=== PATIENT | male | born 1980 | race Asian ===

== ENCOUNTER 2017-06-29 16:13 | Outpatient (CLI) | payer OTHER ==
--- NOTE | 2017-06-29 16:21 | PN ---
Date/Time of Note Date/Time of Note DATE: 06/29/17 TIME: 16:15 Outpatient Progress Note Chief Complaint Diabetic ketoacidosis/diabetes/hypertension/hyperlipidemia/neuropathy/ gastroparesis HPI Diabetic ketoacidosis/patient was recently hospitalized with diabetict ketoacidosis, no nausea vomiting no abdominal discomfort, Diabetes/no polyps or polyuria hypoglycemia, blood sugar fairly controlled, Hypertension/no headache or dizziness, no impaired vision, Hyperlipidemia/no xanthoma, on medication, Neuropathy/patient has tingling numbness, patient on gabapentin, slightly better , Gastroparesis/patient has gastroparesis, no nausea vomiting or abdominal pain, Review of Systems Const: No Fever, no chills, no Wt. loss, no Fatigue, normal appetite, no diaphoresis slightly obese,. Eyes: No pain, no discharge, no redness, no visual change, no foreign body. ENT: No pain, no bleeding, no congestion, no sore throat, no dysphagia, no discharge or rhinitis. Lymph: No adenopathy, no tender nodes, no lymphedema. Resp: No SOB, no cough, no sputum, no wheezing, no chest pain. CV: No chest pain, no palpitaions, no ABARCA, no PND, no edema. GI: Normal appetite, no pain, no nausea, no vomiting, no diarrhea, no blood, no constipation. : No frequency, no urgency, no dysuria, no hematuria, no flank pain, no discharge, no bleeding. Musc: No bone/joint pain, no back pain, no neck pain, no knee pain, no restricted ROM. Skin: No rash, no skin lesions, no erythema, no laceration, no bruising, no pruritus. Neuro: No MAI, no dizziness, no syncope, no seizure, no focal-weakness. Endo: No polyuria, no polydypsia, no dry-skin, no temp-intolerance. Psych: No hallucinations, no depression, no anxiety, no suicidal ideation. Ext: No edema, no pain, no ulcer, no weakness. Physical Exam General Appearance: A 37 year-old male who appears well-developed, well- nourished, in no acute distress. Patient slightly obese, HEENT: Head normocephalic, atraumatic. Pupils equal, round, reactive to light and accommodate. Sclerae are no jaundice. Nasal turbinates pink without erythema or nasal discharge. Mucous membranes pink and moist without lesions. Oropharynx clear without any exudate or discharge. NECK: Supple. Trachea midline, No thyromegaly, No cervical lymphadenopathy, No mass, No carotid bruits, No JVD, Carotid pulses 2+ bilaterally. PULMONARY: Clear to auscultaion bilaterally, No retractions, Chest expansion symmetric bilaterally, no rales, no ronchi, no dulness on percussion. CARDIAC: Normal SI and S2, Regular rate and rythm, no murmur, gallop, or rub. GASTROINTESTINAL: Abdomen is soft, non-tender, Non Rigid, No distention, Positive bowel sounds x4 quadrants, Liver normal. SKIN: Warm, dry, no rash, no bruise, no echmosis. EXTREMITIES: Bilateral lower extremities normal, no edema, no phlabitus, pulse palpable, no contracture. MUSCULOSKELETAL: Spine Normal, Non-tender, Normal range of motion, No swelling, no deformity, no clubbing, or cyanosis, the patient has no edema to bilateral lower extremities, dorsalis pedis pulses palpable bilaterally. NEUROLOGIC: The patient is awake, alert, oriented, responding to yes/no questions appropriately, moving all extremities, cranial nerve intact, normal strenght, normal power, normal coordination, normal gait. PMH Diabetic ketoacidosis/diabetes/hypertension/hyperlipidemia/neuropathy/gastric gastroparesis/renal insufficiency/lactic acidosis/microscopic hematuria/ Social Hx No smoking no drinking at present, Family Hx Noncontributory Assessment/Plan Impression Diabetic ketoacidosis improved Diabetes Hypertension Hyperlipidemia Neuropathy Gastroparesis Renal insufficiency improving Plan Patient education done about diabetes and other complication, and risk of diabetes hypertension explained to the patient, if patient does not control the diabetes control blood pressure or control the weight patient may end up with complications including acute renal failure diabetic ketoacidosis blindness in potency, MD, chronic renal failure, gangrene, leading to cardiac arrest and sudden , patient understands it, patient will try to do all about recommendation, CBC CMP, Increase activity slowly, and patient has all the medication, patient does not need any medication at present, JOANIE SALAS MD Jun 29, 2017 16:20
== END 2017-06-29 17:00 | disposition home or self-care (01) ==
LOC: DCC 16:13
PROVIDERS: ATTEND Internal Medicine
DX: E13.10 Other specified diabetes mellitus with ketoacidosis without coma (principal); I10 Essential (primary) hypertension; E78.5 Hyperlipidemia, unspecified; K31.84 Gastroparesis; N28.9 Disorder of kidney and ureter, unspecified; G62.9 Polyneuropathy, unspecified; R31.29 Other microscopic hematuria

== ENCOUNTER 2017-07-13 11:42 | Outpatient (CLI) | payer OTHER ==
[~2017-07-13] VITALS: Ht 170.2 cm; Wt 85.2 kg
[2017-07-13] MEDS ORDERED: GABA300C16 PO (11:55)
[2017-07-13] MEDS ORDERED: METO5TAB58 PO (11:55)
[2017-07-13] MEDS ORDERED: ATOR20TA38 PO (11:55)
[2017-07-13] MEDS ORDERED: INSU100C SQ (11:55)
[2017-07-13] MEDS ORDERED: AMLO-147 PO (11:55)
[2017-07-13] MEDS ORDERED: AMLO5TAB4 PO (11:55)
[2017-07-13] MEDS ORDERED: LANT3I SC (11:55)
[2017-07-13 12:00] VITALS: Ht 170.2 cm; Wt 85.2 kg
[2017-07-13 12:01] VITALS: BP 125/86; PULSE 100; RESP 18
--- NOTE | 2017-07-13 12:15 | PN ---
Date/Time of Note Date/Time of Note DATE: 07/13/17 TIME: 12:11 Outpatient Progress Note Chief Complaint Diabetes/hypertension/hyperlipidemia/neuropathy HPI Diabetes/no polydipsia polyuria hypoglycemia, patient blood sugar at present controlled, this morning blood sugar was 130, Hypertension/no headache or dizziness or lightheadedness, on medication, Hyperlipidemia/no xanthoma, on medication, Neuropathy/patient has neuropathy, on medication, improving slowly, Review of Systems const: No Fever, no chills, no Wt. loss, no Fatigue, normal appetite, no diaphoresis. Eyes: No pain, no discharge, no redness, no visual change, no foreign body. ENT: No pain, no bleeding, no congestion, no sore throat, no dysphagia, no discharge or rhinitis. Resp: No SOB, no cough, no sputum, no wheezing, no chest pain. CV: No chest pain, no palpitaions, no ABARCA, no PND, no edema. GI: Normal appetite, no pain, no nausea, no vomiting, no diarrhea, no blood, no constipation. : No frequency, no urgency, no dysuria, no hematuria, no flank pain, no discharge, no bleeding. Skin: No rash, no skin lesions, no erythema, no laceration, no bruising, no pruritus patient has slight neuropathy discomfort, on medication,. Neuro: No MAI, no dizziness, no syncope, no seizure, no focal-weakness neuropathy pain, Endo: No polyuria, no polydypsia, no dry-skin, no temp-intolerance. Psych: No hallucinations, no depression, no anxiety, no suicidal ideation. Ext: No edema, neuropathy pain, improving slowly, no ulcer, no weakness. Physical Exam Vital Signs Date Time Temp Pulse Resp B/P Pulse Ox O2 Delivery O2 Flow Rate FiO2 07/13/17 12:01 98.2 100 18 125/86 100 Room Air General Appearance: A 37 year-old male who appears well-developed, well- nourished, in no acute distress. Slightly obese, HEENT: Head normocephalic, atraumatic. Pupils equal, round, reactive to light and accommodate. Sclerae are no jaundice. Nasal turbinates pink without erythema or nasal discharge. Mucous membranes pink and moist without lesions. Oropharynx clear without any exudate or discharge. NECK: Supple. Trachea midline, No thyromegaly, No cervical lymphadenopathy, No mass, No carotid bruits, No JVD, Carotid pulses 2+ bilaterally. PULMONARY: Clear to auscultaion bilaterally, No retractions, Chest expansion symmetric bilaterally, no rales, no ronchi, no dulness on percussion. CARDIAC: Normal SI and S2, Regular rate and rythm, no murmur, gallop, or rub. GASTROINTESTINAL: Abdomen is soft, non-tender, Non Rigid, No distention, Positive bowel sounds x4 quadrants, Liver normal. SKIN: Warm, dry, no rash, no bruise, no echmosis. EXTREMITIES: Bilateral lower extremities normal, no edema, no phlabitus, pulse palpable, no contracture. Fifth toe missing right foot, MUSCULOSKELETAL: Spine Normal, Non-tender, Normal range of motion, No swelling, no deformity, no clubbing, or cyanosis, the patient has no edema to bilateral lower extremities, dorsalis pedis pulses palpable bilaterally. NEUROLOGIC: The patient is awake, alert, oriented, responding to yes/no questions appropriately, moving all extremities, cranial nerve intact, normal strenght, normal power, normal coordination, normal gait. Allergies Coded Allergies: No Known Drug Allergies (Verified Allergy, Unknown, 07/13/17) PMH No change Social Hx No change Family Hx No change Assessment/Plan Impression Diabetes under control/hypertension under control/hyperlipidemia/neuropathy Plan Patient education done about diabetes and controlling the blood sugar and controlling the blood pressure risk of complication explained to the patient, Patient encouraged to follow with the primary care physician, Patient is running out of the medication today, but patient is going to go to [facility] where he gets his medication today, I have given option to give prescription, but as patient is going today he will refill from there, and it is covered over there, Medications Home Meds Reported Medications Insulin Lispro (Humalog) 100 Unit/1 Ml Cartridge, 100 UNIT SQ AC MEALS 07/13/17 Insulin Glargine* (Lantus*) 100 Unit/Ml Soln, 20 UNIT SC QHS, #1 VIAL 07/13/17 Atorvastatin Calcium* (Atorvastatin Calcium*) 20 Mg Tablet, 20 MG PO QHS, #30 TAB 07/13/17 Amlodipine Besylate* (Norvasc*) 5 Mg Tablet, 5 MG PO DAILY, TAB 07/13/17 Amlodipine Besylate* (Amlodipine Besylate*) 10 Mg Tablet, 10 MG PO DAILY, #30 TAB 07/13/17 Metoclopramide* (Reglan*) 5 Mg Tablet, 5 MG PO AC MEALS, TAB 07/13/17 Gabapentin* (Gabapentin*) 300 Mg Capsule, 300 MG PO TID, #90 CAP 07/13/17 OJANIE SALAS MD Jul 13, 2017 12:15
== END 2017-07-13 17:00 | disposition home or self-care (01) ==
LOC: DCC 11:42
PROVIDERS: ATTEND Internal Medicine
DX: E11.9 Type 2 diabetes mellitus without complications (principal); Z79.4 Long term (current) use of insulin; I10 Essential (primary) hypertension; E78.5 Hyperlipidemia, unspecified; G62.9 Polyneuropathy, unspecified